=== PATIENT | female | born 1965 | race Caucasian/White ===

== ENCOUNTER 2016-10-30 17:35 | Emergency (ER) | payer BC ==
[2016-10-30 18:06] VITALS: BP 112/78
[2016-10-30] MEDS: Albuterol/Ipratropium NEB.SOL* Albuterol 2.5 MG/Ipratropium 0.5 MG 3 ML INH ONE ×2 (18:34→18:37)
[2016-10-30] MEDS: Azithromycin TAB* 250 MG PO ONE (19:34)
--- NOTE | 2016-11-03 16:28 | UC ---
Carson, DoctorAraceli, scribed for Anne Layton MD on 10/30/16 at 1840 . Asthma HPI - HPI Summary HPI Summary: 51 year old [place] [facility] [place], wheezing and increased inhaler use for the past two days. She reports feeling congestion and "tightness " beginning three days ago; denies any sinus tenderness, fever, or body aches. She reports that her son had flu-like symptoms earlier this week, which resolved within two days. She has a PMHx of asthma and uses an inhaler regularly at home. She has recently had cataract surgery with Dr. Alcantara ( [employer]). - History of Current Complaint Chief Complaint: UCRespiratory Stated Complaint: COUGH,ASTHMA Time Seen by Provider: 10/30/16 18:11 Hx Obtained From: Patient Hx Last Menstrual Period: "MONTHS AGO" Onset/Duration: Gradual Onset, Lasting Days - coughing/wheezing for the past two days, Still Present Timing: Constant Initial Severity: Moderate Current Severity: Moderate Pain Intensity: 0 Pain Scale Used: 0-10 Numeric Location/Character: Wheezing Aggravating: Nothing Alleviating: Inhalers/Nebulizers - at-home inhaler Associated Signs and Symptoms: Positive: URI. Negative: Calf Pain, Chest Pain, Sinus Infection - Risk Factors Status Asthmaticus Risk Factors: Negative - Allergy/Home Medications Allergies/Adverse Reactions: Allergies Allergy/AdvReac Type Severity Reaction Status Date / Time No Known Allergies Allergy Verified 04/28/14 15:06 Home Medications: Home Medications Albuterol HFA INHALER* [Ventolin HFA Inhaler*] 1 10/30/16 [History] Ciclesonide 80 MCG MDI (NF) [Alvesco 80 MDI (NF)] 1 10/30/16 [History] PMH/Surg Hx/FS Hx/Imm Hx Endocrine History Of: Denies: Diabetes, Thyroid Disease Cardiovascular History Of: Denies: Cardiac Disorders, Hypertension Respiratory History Of: Reports: Asthma Denies: COPD GI/ History Of: Denies: Ulcer Cancer History Of: Denies: Breast Cancer - Surgical History Surgical History: Yes Surgery Procedure, Year, and Place: 2 C-SECTIONS - Family History Known Family History: Positive: Other - Allergies, no FHx of asthma, no FHx of blood clots - Social History Lives: With Family Alcohol Use: Rare Substance Use Type: None Smoking Status (MU): Never Smoked Tobacco - Immunization History Most Recent Influenza Vaccination: 2016 Review of Systems Constitutional: Other - no fever ENT: Other - denies any sinus tenderness Respiratory: Shortness Of Breath - increased use of inhaler necessary, Cough, Other - wheezes Musculoskeletal: Other: - denies any 'body aches' Psychological: Negative All Other Systems Reviewed And Are Negative: Yes Physical Exam Triage Information Reviewed: Yes Appearance: No Pain Distress, Well-Nourished, Ill-Appearing Vital Signs: Initial Vital Signs Temp 98.7 F 10/30/16 18:01 Pulse 74 10/30/16 18:01 Resp 18 10/30/16 18:01 BP 112/78 10/30/16 18:01 Pulse Ox 98 10/30/16 18:01 Vital Signs Reviewed: Yes Eyes: Positive: Conjunctiva Clear ENT: Positive: Normal ENT inspection, Pharynx normal, TMs normal Neck: Positive: Supple, Nontender, No Lymphadenopathy Respiratory: Positive: No respiratory distress, Wheezing - inspiratory bilateral wheezes Cardiovascular: Positive: RRR, No Murmur, Pulses Normal, Brisk Capillary Refill Musculoskeletal: Positive: Strength Intact, ROM Intact Neurological: Positive: Alert, Muscle Tone Normal Psychological Exam: Normal Skin Exam: Normal Re-Evaluation - Re-Evaluation First Eval Re-Evaluation Time: 19:20 Change: Improved - 19:20 - Discussed Influenza Test results; pt symptoms signficantly improved. Discussed additional medications for asthma management, Abx for current infection; advised regular peak flow meater use at home. Pt was agreeable with medications ordered and treatment plan. Asthma Course/Dx - Course Course Of Treatment: influenza A and B neg - Differential Dx/Diagnosis Differential Diagnosis/HQI/PQRI: Acute Asthma, Bronchitis, Pneumonia Provider Diagnoses: acute asthmatic bronchitis Discharge - Discharge Plan Condition: Stable Disposition: HOME Prescriptions: Azithromycin TAB* [Zithromax TAB (Z-FATEMEH) 250 mg #6 tabs] 250 mg PO DAILY #4 tab Montelukast Sodium TAB* [Singulair TAB*] 10 mg PO DAILY #30 tab predniSONE TAB* [Deltasone TAB*] 40 mg PO DAILY #10 tab Patient Education Materials: Asthma (ED), Acute Bronchitis (ED) Referrals: Malcom Weston MD [Primary Care Provider] - The documentation as recorded by the scribe, Araceli Grimm accurately reflects the service I personally performed and the decisions made by me, Anne Layton MD.
== END 2016-10-30 19:45 | disposition home or self-care (01) ==
LOC: UCEAST 17:35
DX: J20.9 Acute bronchitis, unspecified (principal)
CPT/HCPCS: 87502; 99212; A9270-GY; G0463